=== PATIENT | female | born 1965 | race Caucasian/White ===

== ENCOUNTER → 2017-03-31 | Outpatient (CLI) | payer BC, OTHER | END | disposition home or self-care (01) | LOC: C.PATH 16:20 | PROVIDERS: ATTEND Obstetrics & Gynecology | DX: N76.3 Subacute and chronic vulvitis (principal) ==

== ENCOUNTER 2024-01-22 07:02 | Observation (INO) ==
--- NOTE | 2023-12-31 12:03 | PAT Medication Instructions ---
Medication Instructions Date of Service December 31, 2023 Home Medications citalopram 40 mg tablet 40 mg PO QAM loratadine 10 mg capsule 10 mg PO QAM omeprazole 20 mg capsule,delayed release 20 mg PO QAM albuterol sulfate 90 mcg/actuation aerosol inhaler 2 puff inhalation QID PRN Shortness Of Breath Or Wheezing baclofen 10 mg tablet 10 mg PO BID PRN Pain betamethasone dipropionate 0.05 % topical cream 1 applic topical DAILY PRN Skin Irritation chlorthalidone 25 mg tablet 25 mg PO QAM metformin 500 mg tablet 500 - 1,000 mg PO UD aripiprazole 15 mg tablet 15 mg PO HS aspirin 81 mg capsule 81 mg PO QAM biotin 5,000 mcg disintegrating tablet 10,000 mcg PO QAM cholecalciferol (vitamin D3) 1,250 mcg (50,000 unit) tablet 1,250 mcg PO Q7D ferrous sulfate 325 mg (65 mg iron) tablet 650 mg PO HS glucosamine sulf dipot chlr,msm,chond 550 mg-C 30 mg-citlalli 1 mg capsule (Glucosa mine Chondroitin) 2 cap PO DAILY magnesium 250 mg tablet 250 mg PO DAILY multivitamin 1 tab PO QAM olmesartan 40 mg tablet 40 mg PO QAM vitamin A 2,400 mcg capsule 2,400 mcg PO QAM vitamin E 400 unit tablet 180 mg PO QAM vitamin K2 90 mcg capsule 90 mcg PO QAM ASK your prescriber and surgeon aspirin 81 mg capsule 81 mg PO QAM STOP taking 2 weeks before surgery (or as soon as possible if surgery is within 2 weeks) glucosamine sulf dipot chlr,msm,chond 550 mg-C 30 mg-citlalli 1 mg capsule (Glucosamine Chondroitin) 2 cap PO DAILY vitamin E 400 unit tablet 180 mg PO QAM vitamin K2 90 mcg capsule 90 mcg PO QAM STOP taking 24 hours before surgery betamethasone dipropionate 0.05 % topical cream 1 applic topical DAILY PRN Skin Irritation DO NOT take the morning of surgery loratadine 10 mg capsule 10 mg PO QAM chlorthalidone 25 mg tablet 25 mg PO QAM metformin 500 mg tablet 500 - 1,000 mg PO UD biotin 5,000 mcg disintegrating tablet 10,000 mcg PO QAM cholecalciferol (vitamin D3) 1,250 mcg (50,000 unit) tablet 1,250 mcg PO Q7D magnesium 250 mg tablet 250 mg PO DAILY multivitamin 1 tab PO QAM olmesartan 40 mg tablet 40 mg PO QAM vitamin A 2,400 mcg capsule 2,400 mcg PO QAM Take morning of surgery With a small sip of water, OTHERWISE NOTHING TO EAT OR DRINK AFTER MIDNIGHT: citalopram 40 mg tablet 40 mg PO QAM omeprazole 20 mg capsule,delayed release 20 mg PO QAM albuterol sulfate 90 mcg/actuation aerosol inhaler 2 puff inhalation QID PRN Shortness Of Breath Or Wheezing (use if needed; please bring rescue inhaler with you to hospital day of surgery if possible) baclofen 10 mg tablet 10 mg PO BID PRN Pain (if needed) Take evening before surgery albuterol sulfate 90 mcg/actuation aerosol inhaler 2 puff inhalation QID PRN Shortness Of Breath Or Wheezing (if needed) baclofen 10 mg tablet 10 mg PO BID PRN Pain (if needed) metformin 500 mg tablet 500 - 1,000 mg PO UD aripiprazole 15 mg tablet 15 mg PO HS ferrous sulfate 325 mg (65 mg iron) tablet 650 mg PO HS Other Notes If you have any questions please call us at [phone] or [phone] or [phone] or [phone]
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
[~2024-01-22 07:02] MED LIST: BUPIVACAINE 0.5 % 5 MG/1 ML PF 10ML VIAL ONE; ROPIVACAINE 0.5% 5 MG/ML 30 ML VIAL ONE
[2024-01-22] MEDS: LR 60ML/HR IV SCH (07:59)
[2024-01-22] MEDS: LR 500ML BOLUS, THEN 15ML/HR IV SCH (07:59)
[2024-01-22] MEDS: Scopolamine 1 MG TDSY TD SCH (07:59)
[2024-01-22] MEDS: ACETAMINOPHEN 500 MG TAB PO SCH ×2 (08:01→14:44)
[2024-01-22] MEDS: CeleBREX 200 MG CAP PO SCH (08:01)
[2024-01-22] MEDS ORDERED: fentaNYL citrate PF 100 MCG/2 ML VIAL ONE (08:02)
[2024-01-22] MEDS: FAMOTIDINE 20 MG TAB PO SCH (08:02)
[2024-01-22] MEDS: traMADol HCL 50 MG TABLET PO SCH (08:02)
[2024-01-22] MEDS ORDERED: PROPOFOL IV EMULSION 10 MG/ML 20 ML VIAL IV ONE (08:02)
[2024-01-22] MEDS: dexAMETHasone**PF** 10 MG/ML VIAL IV SCH (08:03)
[2024-01-22] MEDS ORDERED: MIDAZOLAM HCL 1 MG/ML 2ML VIAL ONE (08:03)
[2024-01-22] MEDS ORDERED: fentaNYL citrate PF 100 MCG/2 ML VIAL IV PRN (08:23)
[2024-01-22] MEDS ORDERED: ATROPINE SULFATE 0.1 MG/ML 10ML SYR IV PRN (08:23)
[2024-01-22] MEDS ORDERED: ePHEDrine sulfate 50 MG/ML AMP IV PRN (08:23)
[2024-01-22] MEDS ORDERED: ONDANSETRON INJ 2 MG/ML 2 ML VIAL IV PRN ×2 (08:23→11:56)
--- NOTE | 2024-01-22 09:35 | History & Physical Bridge Note ---
Date of Service January 22, 2024 History & Physical Bridge Note I have examined the patient, reviewed the History & Physical and in the interval since the performance of the History & Physical I have noted the following changes of clinical significance: no changes noted
--- OUTSIDE RECORDS SUMMARY | 2024-01-22 09:35 | External Medical Summary | Continuity of Care Document ---
Author Name Unknown Organization [place] [id number] Address [address] [place] [phone] Care Team Providers Care Robot Technician Name Role Phone Buffy Paul Primary Care Physician [phone] Encounter [facility] [id number] Date(s): 01/07/24 - 01/07/24 [facility] [address] [place] [id number] [facility] Medicine [address] [place] [id number] Encounter Diagnosis Proximal humeral fracture(Discharge Diagnosis) - 01/07/24 Discharge Disposition: Home or Self Care Attending Physician: MD Merlene, Attila Saini Allergies, Adverse Reactions, Alerts Substance Criticality Severity Reaction Reaction Severity Status lisinopril cough Resolved losartan cough Resolved Dilaudid Unable to assess criticality Severe Acute respiratory distress anayphlaxis Active Lipitor Unable to assess criticality Severe Muscle ache muscle aches Active Atorvastatin Calcium itching Active HYDROmorphone Hydrochloride Unable to assess criticality Severe Unknown Active Immunizations Given and Recorded Vaccine Date Status Refusal Reason SARS-CoV-2 (COVID-19) mRNA-1273 vaccine 1 10/25/20 Recorded SARS-CoV-2 (COVID-19) mRNA-1273 vaccine 2 09/22/20 Recorded influenza virus vaccine, inactivated 01/27/20 Give n influenza virus vaccine, inactivated 04/24/18 Give n influenza virus vaccine, inactivated 02/24/17 Give n influenza virus vaccine, inactivated 02/16/16 Give n influenza virus vaccine, inactivated 04/07/15 Give n influenza virus vaccine, inactivated 01/27/14 Give n pneumococcal 13-valent vaccine 04/07/15 Given pneumococcal 23-valent vaccine 08/07/11 Recorded tetanus toxoids-diphtheria, Td (Adult) 07/31/09 Re corded hepatitis A-hepatitis B vaccine 3 10/24/04 Recorde d 1Result Comment: 2021-01-18: Historical information-source unspecified 2Result Comment: 2021-01-18: Historical information-source unspecified 3Result Comment: 2021-01-18: Historical information-source unspecified Medications Albuterol (Eqv-ProAir HFA) 90 mcg/inh inhalation aerosol Start: 02/15/23 12:07:00 PM EDT, q6h, PRN: shortness of breath Start Date: 02/15/23 Status: Ordered amLODIPine 10 mg oral tablet Start: 07/04/23 2:34:00 PM EST, 1 tab, PO, Daily Start Date: 07/04/23 Status: Ordered ARIPiprazole 15 mg oral tablet Start: 02/15/23 12:08:00 PM EDT, 1 tab, PO, qhs Start Date: 02/15/23 Status: Ordered aspirin 81 mg oral tablet, chewable Start: 07/12/23 7:08:00 AM EST, 1 tab, PO, Daily, Disp# 30 tab, Pharmacy: [facility] Start Date: 07/12/23 Stop Date: 08/11/23 Status: Ordered baclofen 10 mg oral tablet Start: 04/10/23 7:23:00 PM EST, 1 tab, PO, bid, Disp# 60 tab, Refills: 4, PRN: spasms, Pharmacy: [facility]/pharmacy #[id number] Start Date: 04/10/23 Stop Date: 09/07/23 Status: Ordered betamethasone dipropionate 0.05% topical cream Start: 01/12/21 2:45:00 PM EDT, 1 appl, topical, Daily, Disp# 50 g, Refills: 3, Note to Pharmacy: 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, Pharmacy: [facility]/pharmacy #[id number] Start Date: 01/12/21 Status: Ordered biotin Start: 03/27/23 9:19:00 AM EDT, 1,000 mcg =, Daily Start Date: 03/27/23 Status: Ordered calcium (as carbonate) 600 mg oral tablet Start: 07/11/16 2:17:00 PM EST, 1 tab, PO, Daily Start Date: 07/11/16 Status: Ordered chlorthalidone 25 mg oral tablet Start: 02/15/23 12:08:00 PM EDT, 1 tab, PO, Daily Start Date: 02/15/23 Status: Ordered citalopram 40 mg oral tablet Start: 02/15/23 12:08:00 PM EDT, 1 tab, PO, Daily Start Date: 02/15/23 Status: Ordered ergocalciferol 1.25 mg (50,000 intl units) oral capsule Start: 12/20/22 12:33:00 PM EDT, See Instructions, Disp# 4 cap, Refills: 11, TAKE 1 CAPSULE BY MOUTHEVERY 7 DAYS, Pharmacy: [facility]/pharmacy #[id number] Start Date: 12/20/22 Status: Ordered gabapentin 300 mg oral capsule Start: 11/12/23 3:53:00 PM EDT, 1 cap, PO, tid, Disp# 90 cap, Refills: 4, Pharmacy: [facility] Start Date: 11/12/23 Stop Date: 04/10/24 Status: Ordered hydrOXYzine hydrochloride 10 mg oral tablet Start: 02/15/23 12:09:00 PM EDT, 1 tab, PO, Daily, PRN: as needed for anxiety Start Date: 02/15/23 Status: Ordered Iron Start: 07/11/17 4:12:00 PM EST, Iron, 2 tab, PO, qhs Start Date: 07/11/17 Status: Ordered lidocaine 4% topical cream Start: 03/27/23 9:59:00 AM EDT, 1 appl, topical, tid, Disp# 133 g, Refills: 1, PRN: as needed for pain, Pharmacy: [facility]/pharmacy #[id number] Start Date: 03/27/23 Stop Date: 05/26/23 Status: Ordered loratadine 10 mg oral capsule Start: 06/02/23 7:54:00 PM EST, 1 cap, PO, Daily, Disp# 30 cap, Refills: 11, Pharmacy: [facility]/pharmacy #[id number] Start Date: 06/02/23 Status: Ordered magnesium gluconate 500 mg oral tablet Start: 07/04/23 2:33:00 PM EST, 1 tab, PO, Daily Start Date: 07/04/23 Status: Ordered MetFORMIN (Eqv-Glucophage XR) 500 mg oral tablet, extended release Start: 05/05/23 12:44:00 PM EST, 2 tab, PO, bid, Disp# 120 tab, Refills: 11, Pharmacy: [facility]/pharmacy#[id number] Start Date: 05/05/23 Stop Date: 04/29/24 Status: Ordered multivitamin Start: 07/11/16 2:16:00 PM EST, 1 tab, PO, Daily Start Date: 07/11/16 Status: Ordered olmesartan 40 mg oral tablet Start: 04/22/23 2:22:00 PM EST, 1 tab, PO, Daily, Disp# 30 tab, Refills: 11, Pharmacy: [facility]/pharmacy#[id number] Start Date: 04/22/23 Stop Date: 04/16/24 Status: Ordered omeprazole 20 mg oral delayed release capsule Start: 03/26/23 6:28:00 PM EDT, 1 cap, PO, Daily, Disp# 30 cap, Refills: 10, Pharmacy: [facility] [id number] Start Date: 03/26/23 Status: Ordered ONE TOUCH DELICA 33G LANCETS ONE TOUCH DELICA 33G LANCETS, See Instructions, Disp# 100 unknown unit, Refills: 2, TEST ONCE A DAYAND NEEDED, Pharmacy [facility] [id number] Start Date: 07/11/20 Status: Ordered One Touch Verio Glucose Monitor Start: 06/07/20 9:25:00 AM EST, See Instructions, Disp# 1 each, test in am and as needed, [id number] Start Date: 06/07/20 Status: Ordered ONE TOUCH VERIO TEST STRIP ONE TOUCH VERIO TEST STRIP, See Instructions, Disp# 100 strip, Refills: 3, TEST IN AM AND NEEDED, Pharmacy [id number] Start Date: 06/07/21 Status: Ordered potassium bicarbonate 10 mEq oral tablet, effervescent Start: 07/04/23 2:31:00 PM EST, 1 tab, Daily Start Date: 07/04/23 Status: Ordered traMADol 50 mg oral tablet Start: 12/30/23 8:49:00 AM EDT, 1 tab, PO, q12h, Disp# 45 tab, PRN: as needed for pain, Pharmacy: [facility] Start Date: 12/30/23 Status: Ordered Tylenol 500 mg oral tablet Start: 03/01/23 7:51:00 AM EDT, 2 tab, PO, q8h Start Date: 03/01/23 Status: Ordered vitamin A Start: 06/06/20 9:38:00 AM EST, See Instructions, 1 tablet daily Start Date: 06/06/20 Status: Ordered Vitamin B Complex oral capsule Start: 07/04/23 2:32:00 PM EST, 1 cap, PO, Daily Start Date: 07/04/23 Status: Ordered Vitamin C 250 mg oral tablet Start: 07/04/23 2:32:00 PM EST, 1 tab, PO, Daily Start Date: 07/04/23 Status: Ordered Vitamin D3 2000 intl units (50 mcg) oral tablet Start: 01/28/23 11:44:00 AM EDT, 3 tab, PO, Daily, Disp# 90 tab, other Start Date: 01/28/23 Status: Ordered vitamin E Start: 01/12/21 1:55:00 PM EDT, 180 mg =, PO, Daily Start Date: 01/12/21 Status: Ordered Vitamin K1 Start: 07/11/16 2:17:00 PM EST, 1 tab, PO, Daily Start Date: 07/11/16 Status: Ordered Mental Status 01/07/24 Barriers to Learning one year Vision imp airment, Other: glasses Mandatory Health Literacy Documentation Yes Health Literacy Communication Barriers N ever Primary Language Yi Problem List Condition Confirmation Course Effective Dates Status H ealth Status Informant Adjustment disorder with mixed anxiety and depressed mood Confirmed Active Basal cell carcinoma (BCC) Confirmed Active Bradycardia Confirmed Active Chronic cough Confirmed Active Diabetes Confirmed Active Proximal humeral fracture Confirmed Active History of chickenpox Confirmed Active Personal history of gastric bypass Confirmed Active History of mumps Confirmed Active History of vertebral compression fracture Confirmed Active Hallux valgus of left foot Confirmed Active Hammertoe of left foot Confirmed Active HTN (hypertension) Confirmed Active Bilateral knee pain Confirmed Active Lichen sclerosus Confirmed Active Lung nodule Confirmed Active GIGI on CPAP Confirmed Active Knee osteoarthritis Confirmed Active Peripheral edema Confirmed Active Renal mass Confirmed Active Thyroid nodule Confirmed Active Vitamin D deficiency Confirmed Active Weight disorder Confirmed Active Diagnosis Diagnosis Type Effective Dates Health Status Cl inical Service Informant Proximal humeral fracture Discharge Diagnosis 01/07/24 Non-Specified Procedures Procedure Date Related Diagnosis Body Site Status Neck 07/09/23 Completed Chest X-ray 1 12/17/22 Completed Electrocardiogram 2 12/17/[address] 3 11/2022 Completed Chest X-ray 4 11/21/22 Completed EKG finding 5 11/21/22 Completed Echocardiogram 6 08/15/22 Complete d Colonoscopy 06/19/22 Completed Mammogram 7 04/12/22 Completed Mohs surgery 08/21/21 Completed Shave biopsy and cauterization of skin 07/18/21 Completed X-ray of right foot 8 02/29/20 Com pleted Venous doppler ultrasonography 9 08/04/19 Completed Mammogram - screening 10 07/19/19 Completed Chest x-ray 11 03/14/19 Completed ECG 12 03/14/19 Completed Fine needle aspiration biops y L & R cervical lymph node 13 06/29/18 Completed Bone density scan 14 05/05/18 Comp leted Ultrasound 15 05/01/18 Completed Ultrasound scan of head and neck 16 04/27/18 Completed Chest x-ray 17 02/17/[address] of chest 18 02/17/18 Completed EKG 19 02/17/18 Completed Eye examination 20 08/11/17 Comple harman Biopsy of vulva 21 03/31/17 Comple harman Eye examination 22 07/22/16 Comple harman Mammogram - screening 23 07/01/16 Completed Colonoscopy 24, 25 11/10/15 Comple harman Chest x-ray 26 10/05/[address] of head 27 10/05/15 Completed Eye examination 28 05/11/15 Comple harman Liver biopsy sample 29 02/01/15 Co mpleted Sleeve gastrectomy with duod enal switch 02/01/15 Completed Sleep studies 30 07/05/14 Complete d Ultrasound scan 31 02/25/14 Comple harman Left Shoulder 32 02/01/14 Complete d XRAY Humerus 33 02/01/14 Completed Upper GI endoscopy 34 11/04/13 Com pleted Upper GI endoscopy 11/04/13 Comple harman PFT 35 11/02/13 Completed Eye examination--diabetic 09/15/13 Completed Mammogram 05/26/13 Completed Pap smear for cervical cance r screening 05/26/13 Completed Colonoscopy 09/14/12 Completed Breast reduction, bilateral Completed Foot X-ray 36 Completed Oophorectomy Completed Surgery 37 Completed 1no acute process 2sinus bradycardia. otherwise normal ECG 3subtle areas of ground glass opacities and nodular density noted mostly within the right lung zone.moderate size hiatal hernia noted. 4no acute findings 5normal sinus rhythm. possible anterior infarct- age undetermined. abnormal ECG. when compared with ECG of 01/16/22. no significant change was found 6Negative exercise echo. Negative stress EKG next year. Average functional capacity. Exercises for another 20 seconds achieving 16 minutes. No exercise- induced chest pain. Normal hemodynamic as well as exercise. Resting LVEF 50 to 55%. Borderline dilated left ventricle. nl Right ventricular size andfunction. No significant pathology. Comparison. 7No mammographic evidence of malignancy. 8[facility] Impression: 1. No acute fracture or dislocation. Slight hallux valgus of the 1st ray 9Impression: Patient left lower extremity venous system. No evidence of acute deep venous thrombosisof the left lwoer extremity. 10No mammographic evidence of malignancy. 11Impression: There is no evidence of acute cardiopulmonary disease. 12Sinus bradycardia 54 beats per minute normal axis there is good R-wave progression across precordium and there is no ST or T-wave changes that would be indicative of ischemia. 13Final interpretation: Left cervical lymph node, Benign mixed lymphocytes Right cervical lymph node. Final interpretation: Benign mixed lymphocytes. Cellblocks: cellblocks contain blood only. 14T-score: -1.0 15bilat lymph nodes f/u ct scan appropriate 16Impression: Bilateral lymph nodes as discussed. Please correlate clinically. 17Impression: no radiographic evidence of acute pathology. 18Impression: Left anterior chest wall bruising. Otherwise, no acute traumatic injury identified in the chest. Multiple mild chronic appearing lower thoracic vertebral body compression deformities please correlate physical exam findings. If clinical concern for a subtle acute injury, consider nonemergent MRI for further evaluation Other findings, as above 19Sinus bradycardia Cannot rule out anterior infarct, age undetermined Abnormal ECG When compared with ECG of 10/05/2015 No significant change was found 20No concerns, return in a year. 21final diagnosis: vulva biopsy: 1. chronic vulvitis. See microscopic description. 2. negative for dysplasia and malignancy. 22Normal exam. To f/u in 1 year. 23Negative, no evidence of malignancy. Normal interval follow-up is recommended in 12 months. 24Rectum polyps, polypectomy: Fragments of hyperplastic/inflammatory polyp. 25The pathology shows benign polyps. Recommend repeat Colonoscopy in 5 yrs 26Stable radiographic appearance of chest without active disease. 27No acute intracranial pathology. 28Annual eye exam. no significant diabetic retinopathy. 29Mild steatosis, no fibrosis 30impression continue using cpap nightly consider wt loss recommend pt keep consistent bed wake timesand to get 7-8 hours sleep , review good sleep hygiene . advised pt on the dangers of drowsy driving and not to drive when drowsy. f/u in 6 months. 31abdomen--no change 32No FX seen. Mild likely Osteoarthritis change seen in L shoulder. 33No FX seen. 34normal 35normal 36xr foot, Right Impression No acute fracture or dislocation . sight hallux valgus of the 1st ray. 37pt had lumbar decompression surgery. 05/31/2020 Social History Social History Type Response Smoking Status Never smoked cigaret cally Sex Female Sex Representation Female (finding) Implantable Device List Procedure Provider Procedure Date Device Type Site Unknown Unknown 07/09/23 Unknown Unknown Device Identifier Serial Number Lot or Batch Number Manufacturing Date Expiration Date Distinct Identification Code MRI Safety Implantable Status Assigning Authority Unknown Unknown [id number] Unknown 04/07/28 Unknown Unknown Active Unknown Procedure Provider Procedure Date Device Type Site Unknown Unknown 02/14/23 Unknown Unknown Device Identifier Serial Number Lot or Batch Number Manufacturing Date Expiration Date Distinct Identification Code MRI Safety Implantable Status Assigning Authority Unknown Unknown [id number] Unknown 03/25/32 Unknown Unknown Active Un known Unknown Unknown [id number] Unknown 06/25/32 Unknown Unknown Active Unk nown Unknown Unknown [id number] Unknown 07/23/32 Unknown Unknown Active Unk nown Ortho Outpt Note * Antonio Mejia: PERFORM Antonio Mejia: PERFORM, MODIFY Antonio Mejia: MODIFY, MODIFY Antonio Mejia: MODIFY Event Display: Ortho Outpt Note Authored Date: [id number] Name:SANDY COSTELLO Patient Number:[id number] :1965 Date of Service:01/07/2024 CHIEF COMPLAINT:Follow-up right proximal humerus fracture; DOI: 10/31/2023 HPI:[id number] Mitzy presents today forright proximal humerus fracture; DOI: 10/31/2023. She states that she has anterior shoulder "catching" symptoms, which gives her short pains and short periods of being unable to move. She is able to use her arm for simple activities. She had a bone density test done previously on 03/2023 which shows normal in the spine.Osteopenia of the hip. She is not on any treatments or medications for this. She is scheduled for a knee replacement with Dr. Bobo on 01/22/2024. PHYSICAL EXAM: Focusing on the patient'sRIGHTupper extremity: Elbow ROM: 0/10/135 Right shoulder ROM: Flexion 145 / ER at side 35/ L1 Left shoulder ROM: Flexion 165/ ER at side 40/ T11 Motor function:5/5wrist extension, elbow flexion, shoulder IR, Shoulder ER, shoulder abduction. Mild substitution with forward elevation Intact liftoff test bilaterally No arm swelling Shoulder is nontender There was no catching on exam today. RADIOGRAPHY: X-ray imaginviews of [employer] shoulderobtained today and personally interpreted by me taken at [facility] showribs lungs and spine unremarkable. There is a well aligned, healing,proximal humerus fracture, surgical neck positive callous formation. Slight anterior displacement of the shaft. No arthritis or dislocation. IMPRESSION: 58 year old female with right proximal humerus fracture, progressing. PLAN: Use arm for light ADLs. Patient should make sure she is able to use a walkeror crutches given her upcoming surgery. Avoid heavy lifting and other strenuous activities. Continue physical therapy. Discussed with the patient the importance of Vitamin D and her bone density. She will discuss her osteopenia and its treatment further with her PCP, Buffy Paul. Follow up in 6-8 weeks. With x-rays Grashey AP axillary transscapular lateral. ATTESTATION: Antonio Teague, have scribed for, and in the presence of, Attila Blunt, on this date,01/07/2024 11:23:00. Electronic Signature on File CC: JESSICA Perez [address] [place] [id number] CC: JESSICA Perez [address] [facility] [id number] Electronically Reviewed/Signed by: Antonio Mejia Author Signature Dt/Tm:01/07/2024 11:48 AM Electronically Reviewed/Signed by: Attila Blunt MD Cosigner Signature Dt/Tm: 01/07/2024 05:17 PM Division of Sports Medicine [facility] Patient Care team information Care Team Personnel Name: JESSICA Paul Tara Position: Nurse Pract - Family Med Member Role: Primary Care Provider Address: [address] [place] [id number] [place] Name: MD Fritz, Leeanne Roa Position: Physician - Orthopaedic Surg Member Role: Lifetime Relationship Address: [address] [facility] [address] [place] [address] [place] Name: Supriya Trammell Ashley Position: Pharmacist Member Role: Pharmacy - Lifetime Care Team Related Persons Name: BAO MADRID
[2024-01-22] MEDS: TRANEXAMIC ACID 1,000 MG **IV Pre-op IV SCH (09:52)
[2024-01-22] MEDS: ceFAZolin 2000MG 2,000 MG/15 ML SYR IV SCH ×2 (10:18→17:42)
[2024-01-22] MEDS ORDERED: ONDANSETRON INJ 2 MG/ML 2 ML VIAL ONE (10:40)
[2024-01-22] MEDS: ROPIV 0.5% 246mg, Ketorolac 30mg, EPINEPHrine 0.5mg in NSS INFIL SCH (11:12)
[2024-01-22] MEDS: ORTHO JOINT ANESTHETIC ONE (11:12)
[2024-01-22] MEDS: TRANEXAMIC ACID 1,000 MG **IV Intra-op IV SCH (11:26)
--- NOTE | 2024-01-22 11:50 | Operative Report ---
Post Operative Report Pre & Post Diagnosis Operation Date: 01/22/24 09:10 Pre-Op Diagnosis: Left Knee Osteoarthritis Post-Op Diagnosis: Left Knee Osteoarthritis I identified the patient and participated in the time-out.: Yes Procedure Operation Date: 01/22/24 09:10 Actual Procedures p Left Total Knee Arthroplasty, Cemented(Left) - Attila Bobo MD Surgeon Attila Bobo MD Asphalt Tile Floor Layer Uriel Sanders DO and WILMER Burleson PA-C. Estimated Blood Loss 50 Findings Consistent with Post-Op Diagnosis Fluids 1000 cc crystalloid Specimens left knee bone and soft tissue contents. Anesthesia Type Spinal MAC Complications none Disposition Disposition: Recovery Room Indications 59-year-old female, with left knee arthritis refractory to conservative management. X-rays demonstrate [id number] joint space narrowing in the medial compartment and tricompartmental osteophyte formation. I had a long discussion with her about the risks and benefits of surgery, alternatives to surgery, and expected outcomes. After reviewing all these she elected proceed with surgery. All questions were answered. Informed consent was signed. Description of Procedure Patient was identified in the preoperative holding area where the surgical site, left knee, was marked. Spinal anesthetic was placed by anesthesia. Patient was brought back to the operating room, placed on the operating room table, and IV sedation was administered. A bump was placed underneath the ipsilateral hip. All bony prominences were padded. Perioperative antibiotics and tranexamic acid were administered. Exam under anesthesia was performed. This demonstrated the patient's range of motion arc to be 10 to 95 degrees. Stable to varus and valgus testing at 30 degrees. The surgical site was prepped and draped in the normal sterile fashion. Prior to incision a multidisciplinary timeout was called. All in the room were in agreement. We began by exsanguinating the limb with an Esmarch bandage. Tourniquet was inflated to 250 mmHg. A 14 cm long incision was made over the anterior aspect of the knee. I dissected through the subcutaneous tissues to the level of the fascia. Full-thickness flaps were raised above the fascia. A median parapatellar arthrotomy was made. Half the fat pad was excised. A medial release was performed with Bovie electrocautery on the proximal tibia. Synovitis in the knee and suprapatellar pouch was removed. The patella was then everted and held with 2 towel clips. There was significant chondrosis of the patella with full-thickness cartilage loss and marginal osteophytes. The thickness of the patella was measured at 22 mm. Patellar resection was performed. Caliper showed the patella thickness now to be 14 mm. A size 38 trial was placed and had a great fit. The 3 drill holes were placed then the trial button was placed. The patellar thickness was now 24 mm which I was very happy with. The patellar trial was then removed, and the knee was flexed up. Retractors were placed to protect the MCL and LCL. Osteophytes were removed from the femoral condyles and intercondylar notch. The ACL and PCL were excised. Intramedullary drill guide was drilled into the femur. Distal femoral cutting guide was placed set at 5 degrees of valgus to resect 11 mm off the distal femur. Distal femoral resection was made without difficulty. The tibia was then exposed. The lateral meniscus was sharply excised. The tibial cutting jig was positioned in line with the tibial shaft in the coronal plane and with 3 degrees of posterior slope in the sagittal plane to resect 9 mm off the less involved compartment. The jig was then pinned in position and the tibial cut was made. We then brought the knee into full extension. Lamina spreaders were placed. The medial meniscus was excised. The extension block was then placed for 5 mm thickness poly. This gave us full extension and excellent stability to varus and valgus stress. Next the extension block was removed, the knee was flexed up, collateral ligaments were protected, and the epicondylar axis and Whitesides line were marked out on the distal femoral cut. Femoral sizing guide was placed. External rotation was set at 3 degrees so that the posterior cut would be parallel with the epicondylar axis and perpendicular with Whitesides line. The patient sized to a size 5 femur. 2 pins were then placed through the jig into the distal femur. The jig was removed and the appropriately sized 4-in-1 cutting jig was placed over the pins, then fixated to the bone using threaded, headed pins. We confirmed that we would not notch the femur with our anterior cut. Our 4 cuts were then made. The cutting jig was removed. The flexion block was then placed with the knee held at 90 degrees. There was excellent stability to varus and valgus at 90 degrees with no gapping medially or laterally. Next the box cutting jig was placed on the distal femur. The box cut was made and the femoral trial was impacted into position. Lug holes were drilled in the distal femur. We then reexposed the tibia. The tibia was sized to a 4 for a fixed-bearing component. The tibial tray with a 5 mm thickness polyethylene liner was placed on the cut tibial surface and the knee was brought through a full range of motion. There was excellent stability to varus valgus stress throughout a full range of motion, which was approximately 0 to 110 degrees. Bovie electrocautery was used to rosa the tibia at the site where the tibial tray rested in full extension. We then flexed up the knee, removed the polyethylene liner, and pinned the tibial tray into position to match the cautery rosa. The intramedullary drill followed by the keel punch were used to prepare the tibia. Next the trial components were removed. I then injected the posterior capsule and periosteum with the periarticular injection cocktail. The bone cuts were then irrigated and dried while the cement was mixed on the back table. The femoral component was cemented on first. Excess cement was removed. A lap sponge was placed over the femoral component for protection, then the tibia was subluxated anteriorly. The all polyethylene tibial component was then cemented in place. Again excess cement was removed. The knee was brought into full extension and held there until the cement cured. The patella was cemented and clamped. Dilute Betadine solution was then allowed to soak in the knee while the cement cured. Once the cement was fully cured, the knee was irrigated out, the tourniquet was let down and meticulous hemostasis was ensured. The knee was brought through a full range of motion. I was were very happy with the patella tracking and the stability. We then began to close. Interrupted 0 Vicryl suture was used to repair the patellar retinaculum in [id number] fashion. The quadriceps and patellar tendons were run with #1 Vicryl. The deep dermal layer was closed with interrupted 2-0 Vicryl. Dermabond and Zipline was used for the skin, followed by a Silverlon dressing. A compressive Clay wrap was placed and the knee was placed into a knee immobilizer. Patient's sedation was lifted and was transferred to recovery room in stable condition. Summary of implants: Depuy Attune Posterior Stabilized Cemented Femur, size 5 left Attune All-polyethylene tibial component, posterior stabilized 5 mm thickness, size 4 Attune patella medialized dome, size 38 2 batches of Palacos high viscosity bone cement Postoperative course: Patient will be admitted to the floor for pain control and monitoring. Weightbearing as tolerated with a walker with no knee range of motion for 48 hours. Aspirin for DVT prophylaxis. I attest to the content of the Intraoperative Record and any orders documented therein. Any exceptions are noted below.
--- NOTE | 2024-01-22 11:54 | Operative Report ---
Post Operative Report Pre & Post Diagnosis Operation Date: 01/22/24 09:10 Pre-Op Diagnosis: Left Knee Osteoarthritis Post-Op Diagnosis: Left Knee Osteoarthritis I identified the patient and participated in the time-out.: Yes Procedure Operation Date: 01/22/24 09:10 Actual Procedures p Left Total Knee Arthroplasty, Cemented(Left) - Attila Bobo MD Surgeon Attila Bobo MD [employer] Consultant Uriel Sanders DO and WILMER Burleson PA-C. Estimated Blood Loss 50 Findings Consistent with Post-Op Diagnosis Specimens Left knee bone and soft tissue Description of Procedure Patient was brought to the operative suite, the left lower extremity was identified, prepped and draped in the usual sterile fashion. Surgical timeout was performed. Patient underwent a left total knee arthroplasty, please see Dr. Bobo's operative report for full details. Was present and assisted with limb positioning, soft tissue retraction, hardware placement, wound closure, postoperative dressing and brace placement. Patient was awakened and taken to the recovery room in stable condition. I attest to the content of the Intraoperative Record and any orders documented therein. Any exceptions are noted below.
[2024-01-22] MEDS ORDERED: ALUMINUM/MAGNESIUM SUSP 30 ML UDC PO PRN (11:56)
[2024-01-22] MEDS ORDERED: MAGNESIUM HYDROXIDE SUSP 30 ML UDC PO PRN (11:56)
[2024-01-22] MEDS ORDERED: bisacodyL 10 MG SUPP PR PRN (11:56)
[2024-01-22] MEDS ORDERED: diphenhydrAMINE 50 MG/ML VIAL IV PRN (11:56)
[2024-01-22] MEDS ORDERED: METOCLOPRAMIDE HCL INJ 5 MG/ML 2 ML VIAL IV PRN (11:56)
[2024-01-22] MEDS ORDERED: NALOXONE HCL 0.4 MG/1 ML VIAL/CARP IV PRN (11:56)
--- NOTE | 2024-01-22 11:56 | Operative Report ---
Post Operative Report Pre & Post Diagnosis Operation Date: 01/22/24 09:10 Pre-Op Diagnosis: Left Knee Osteoarthritis Post-Op Diagnosis: Left Knee Osteoarthritis I identified the patient and participated in the time-out.: Yes Procedure Operation Date: 01/22/24 09:10 Actual Procedures p Left Total Knee Arthroplasty, Cemented(Left) - Attila Bobo MD Surgeon Attila Bobo MD [employer] Worker Uriel Sanders DO and WILMER Burleson PA-C. Estimated Blood Loss 50 Findings Consistent with Post-Op Diagnosis Specimens Left knee bone and soft tissue Description of Procedure I was present during the entire case assisting with positioning, prepping, draping, wound retraction, wound closure, dressing and immobilizer placement. Fellow also present. I served as an extra set of hands during the case. Please see Dr. Bobo procedure note for specifics of the case. I attest to the content of the Intraoperative Record and any orders documented therein. Any exceptions are noted below.
[2024-01-22] MEDS ORDERED: ALBUTEROL HFA 8 GM INHALER INH PRN (11:59)
[2024-01-22] MEDS ORDERED: BACLOFEN 10 MG TAB PO PRN (11:59)
[2024-01-22] MEDS ORDERED: TRIAMCINOLONE ACET 0.5% CR 15 GM TUBE EXT PRN (12:54)
--- NOTE | 2024-01-22 13:35 | Anesthesiology Progress Note ---
Date of Service January 22, 2024 Anesthesia Post Procedure Vital Signs Vital Signs: Temp Pulse Pulse Resp BP Pulse Ox O2 Del Method 01/22/24 13:15 49 L 17 108/52 L 98 Nasal Cannula 01/22/24 13:00 50 L 14 104/50 L 98 Nasal Cannula 01/22/24 12:50 50 L 16 106/48 L 98 Nasal Cannula 01/22/24 12:40 37.2 C 50 L 13 95/47 L 94 Oxymask 01/22/24 12:30 52 L 17 103/55 L 94 Oxymask 01/22/24 12:20 50 L 14 97/49 L 97 Oxymask 01/22/24 12:10 52 L 14 106/59 L 93 Oxymask 01/22/24 12:00 51 L 14 110/66 98 Oxymask 01/22/24 11:50 37.1 C 57 L 18 112/66 99 Oxymask 01/22/24 07:40 36.7 C 51 L 18 134/62 97 Room Air O2 Flow Rate 01/22/24 13:15 2 01/22/24 13:00 2 01/22/24 12:50 2 01/22/24 12:40 3 01/22/24 12:30 3 01/22/24 12:20 3 01/22/24 12:10 3 01/22/24 12:00 11 01/22/24 11:50 11 01/22/24 07:40 Transfer of Care Handoff Completed per policy Notes Mental Status: alert / awake / arousable Patient Amnestic to Procedure: Yes Nausea / Vomiting: adequately controlled Pain: adequately controlled Airway Patency, RR, SpO2: stable & adequate BP & HR: stable & adequate Hydration State: stable & adequate Anesthetic Complications: no major complications apparent
[2024-01-22] MEDS: SODIUM CHLORIDE 0.9% 1,000 ML IV SCH (14:23)
[2024-01-22] MEDS: KETOROLAC TROMETHAMINE 15 MG/ML VIAL IV SCH (14:44)
--- NOTE | 2024-01-22 15:29 | XRay Report ---
TWO VIEWS LEFT KNEE CLINICAL HISTORY: Postoperative examination. FINDINGS: AP and crosstable lateral portable views of the left knee are obtained. A left knee arthrop lasty is in near anatomic alignment. There has been undersurface remodeling of the patella. No acute fracture is seen. Soft tissue edema and subcutaneous gas around the knee are expected postsurgical fi ndings. Bandage material is seen anteriorly. Atherosclerotic calcification is noted in the popliteal artery. IMPRESSION: Expected postoperative changes status post left knee arthroplasty. No acute fracture is s een. ACT 112: Negative or not required by law. Electronically signed by: Feliciano Sterling M.D. 01/22/2024 3:27 PM
[2024-01-22] MEDS: Scopolamine CHECK PATCH PLACEMENT SCH (17:42)
[2024-01-22] MEDS: metFORMIN HCL 500 MG TAB PO SCH (17:48)
[2024-01-22] MEDS: FERROUS SULFATE 325 MG TAB PO SCH (20:05)
[2024-01-22] MEDS: DOCUSATE SODIUM 100 MG CAP PO SCH (20:05)
[2024-01-22] MEDS: SENNA 8.6 MG TAB PO SCH (20:09)
[2024-01-22] MEDS: ARIPiprazole 15 MG TAB PO SCH (20:09)
[2024-01-23 07:52] LABS: Hematocrit (blood only) 28.3 % (37.0-47.0); Hemoglobin 9.5 g/dl (12.0-16.0); Mean Corpuscular Hemoglobin 30.3 pg (25.0-34.0); Mean Corpuscular Hgb Conc 33.6 g/dL (32.0-36.0); Mean Corpuscular Volume 90.1 fL (80.0-100.0); Mean Platelet Volume 11.3 fL (9.4-12.4); Platelet Count 143 K/uL (130-400); RDW Standard Deviation 42.3 fL (36.4-46.3); Red Blood Count 3.14 M/uL (4.20-5.40); White Blood Count 8.35 K/ul (4.8-10.8)
[2024-01-23 07:56] VITALS: BP 132/68; PULSE 58; RESP 16; TEMP 98.1; O2SAT 97
[2024-01-23] MEDS ORDERED: dexAMETHasone 4 MG TAB PO SCH (08:00)
[2024-01-23 08:06] LABS: BUN Creatinine Ratio 32.9 (10-20); Calcium 7.9 mg/dl (8.6-10.3); Creatinine Clr Calc Pharmacy 88.5 ml/min; Est GFR (African American) 105.2 ml/min; Est GFR (Non-African American) 90.8 ml/min; Potassium 4.4 mmol/L (3.5-5.1)
[2024-01-23] MEDS: LOSARTAN POTASSIUM 50 MG TAB PO SCH (08:11)
[2024-01-23] MEDS: metFORMIN HCL 500 MG TAB PO SCH (08:11)
[2024-01-23] MEDS: MAGNESIUM OXIDE 400 MG TAB PO SCH (08:11)
[2024-01-23] MEDS: PANTOprazole 40 MG TAB PO SCH (08:11)
[2024-01-23] MEDS: LORATADINE 10 MG TAB PO SCH (08:12)
[2024-01-23] MEDS: TOCOPHERYL, DL-ALPHA 400 UNITS 180 MG CAP PO SCH (08:12)
[2024-01-23] MEDS: ASPIRIN 81 MG ECTAB PO SCH (08:41)
[2024-01-23] MEDS: MULTIVITAMIN TAB PO SCH (08:41)
[2024-01-23] MEDS ORDERED: NON-FORMULARY MEDICATION (Biotin 5,000 mcg Tablet,Disintegrating) PO SCH (09:00)
[2024-01-23] MEDS ORDERED: NON-FORMULARY MEDICATION (Vitamin A 2,400 mcg Capsule) PO SCH (09:00)
[2024-01-23] MEDS ORDERED: NON-FORMULARY MEDICATION (Glucos Sul 2kcl-Msm-Chond-C-Mn [Glucosamine Chondroitin] 550-30- PO SCH (09:00)
[2024-01-23] MEDS ORDERED: NON-FORMULARY MEDICATION (Aspirin 81 mg Capsule) PO SCH (09:00)
[2024-01-23] MEDS ORDERED: NON-FORMULARY MEDICATION (Multivitamin Tablet) PO SCH (09:00)
[2024-01-23] MEDS ORDERED: VITAMIN K2 PO SCH (09:00)
[2024-01-23] MEDS: CITALOPRAM 40 MG TAB PO SCH (09:17)
[2024-01-23] MEDS: CHLORTHALIDONE 25 MG TAB PO SCH (09:18)
--- NOTE | 2024-01-23 09:50 | Orthopedic Progress Note ---
Date of Service January 23, 2024 Assessment & Plan (1) S/P total knee arthroplasty: Plan: Weightbearing as tolerated with walker assistance Immobilizer use for the first 48 hours postoperatively PT/OT Ice with easy wrap DVT prophylaxis with RAUL stockings and aspirin Keep Silverlon dressing in place Pain control with p.o. medication Plan is to discharge home today with a number physical therapy for the first 2 weeks postoperatively Follow-up at [facility] as previously scheduled Questions contact our clinic at [phone] Admission and Anticipated Discharge Date Admission Date: January 22, 2024 Subjective This 59-year-old female is day 1 status post left total knee arthroplasty. Patient states she is doing very well. She states that her pain is well- controlled with the p.o. pain medication she is receiving. She states she has had no issues with the oxycodone. Patient states that she is scheduled to begin in-home physical therapy over the weekend. She lives with her sister who help provide care. Currently patient denies chest pain, shortness of breath, fever, chills, sweats, numbness or tingling in her left lower extremity. She also denies nausea, vomiting, diarrhea or difficulty voiding. Review of Systems Review of Systems: All systems reviewed & are unremarkable except as noted in Subjective Physical Exam Physical Exam: Left knee: Outer dressing was removed. Silverlon is clean dry and intact and within place. Raul stocking was applied to the left lower extremity. Patient is able to perform an active straight leg raise test. She is able to actively dorsi and plantarflex her foot without issue. She is able to detect light sensation to touch over the pads of all digits. Her peripheral pulses are 2+. Her calf is soft supple nontender to palpation. She is able to actively flex her knee near 50 degrees without significant discomfort. Her quad strength is 3+ out of 5. She is neurovascularly intact in the left lower extremity. Results & Data Vital Signs (Past 12 Hours) Vital Signs Temp Pulse Pulse Pulse Resp BP Pulse Ox 01/23/24 07:54 36.7 C 58 L 16 132/68 97 01/23/24 03:02 36.5 C 63 12 124/73 96 01/23/24 02:54 58 L 12 95 01/22/24 23:34 36.6 C 69 12 115/58 L 96 01/22/24 22:39 52 L 16 93 O2 Del Method 01/23/24 07:54 Room Air 01/23/24 03:02 Room Air 01/23/24 02:54 01/22/24 23:34 BiPAP 01/22/24 22:39 Diagnostic Findings Laboratory Results WBC 8.35 K/ul (4.8-10.8) 01/23/24 07:11 RBC 3.14 M/uL (4.20-5.40) L 01/23/24 07:11 Hgb 9.5 g/dl (12.0-16.0) L 01/23/24 07:11 Hct 28.3 % (37.0-47.0) L 01/23/24 07:11 MCV 90.1 fL (80.0-100.0) 01/23/24 07:11 MCH 30.3 pg (25.0-34.0) 01/23/24 07:11 MCHC 33.6 g/dL (32.0-36.0) 01/23/24 07:11 RDW Std Deviation 42.3 fL (36.4-46.3) 01/23/24 07:11 RDW Coeff of Rafat 13.0 % (11.5-14.5) 01/23/24 07:11 Plt Count 143 K/uL (130-400) 01/23/24 07:11 MPV 11.3 fL (9.4-12.4) 01/23/24 07:11 Sodium 137 mmol/L (136-145) 01/23/24 07:11 Potassium 4.4 mmol/L (3.5-5.1) 01/23/24 07:11 Chloride 107 mmol/L (98-107) 01/23/24 07:11 Carbon Dioxide 26 mmol/L (21-32) 01/23/24 07:11 Anion Gap 4 (3-11) 01/23/24 07:11 BUN 24 mg/dl (6-23) H 01/23/24 07:11 Creatinine 0.73 mg/dl (0.6-1.2) 01/23/24 07:11 Est Cr Clr Drug Dosing 88.5 ml/min 01/23/24 07:11 Est GFR ( Amer) 105.2 ml/min 01/23/24 07:11 Est GFR (Non-Af Amer) 90.8 ml/min 01/23/24 07:11 BUN/Creatinine Ratio 32.9 (10-20) H 01/23/24 07:11 Glucose 135 mg/dl (70-99(Fasting)) H 01/23/24 07:11 POC Glucose 148 mg/dl (70-99) H 01/23/24 07:33 Calcium 7.9 mg/dl (8.6-10.3) L 01/23/24 07:11 Impressions Knee X-Ray 01/22/24 11:56 TWO VIEWS LEFT KNEE CLINICAL HISTORY: Postoperative examination. FINDINGS: AP and crosstable lateral portable views of the left knee are obtained. A left knee arthroplasty is in near anatomic alignment. There has been undersurface remodeling of the patella. No acute fracture is seen. Soft tissue edema and subcutaneous gas around the knee are expected postsurgical findings. Bandage material is seen anteriorly. Atherosclerotic calcification is noted in the popliteal artery. IMPRESSION: Expected postoperative changes status post left knee arthroplasty. No acute fracture is seen. ACT 112: Negative or not required by law. Electronically signed by: Feliciano Sterling M.D. 01/22/2024 3:27 PM
[2024-01-23] MEDS: oxyCODONE HCL IR 5 MG TAB (IMMEDIATE RELEASE) PO PRN (11:00)
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
[2024-01-23] MEDS ORDERED: CeleBREX 200 MG CAP PO SCH (21:00)
[2024-01-27] MEDS ORDERED: ERGOCALCIFEROL 1250 MCG (50,000 UNITS) CAP PO SCH (09:00)
== END 2024-01-23 11:10 | disposition home health service (06) ==
LOC: ASU 07:02 → 3E 07:02